=== PATIENT | female | born 1935 | race Caucasian/White ===

== ENCOUNTER → 2016-11-10 08:05 | Outpatient (CLI) | payer MEDICARE, OTHER ==
[2011-09-01 08:10] VITALS: BMI 22.5
== END | disposition home or self-care (01) ==
LOC: D.MRI 08:00
DX: M54.16 Radiculopathy, lumbar region (principal)

== ENCOUNTER → 2018-12-14 10:31 | Outpatient (CLI) | payer MEDICARE ==
[2011-09-01 08:10] VITALS: BMI 22.5
== END | disposition home or self-care (01) ==
LOC: D.CT 12-05 13:00
PROVIDERS: ATTEND Family Medicine
DX: I73.9 Peripheral vascular disease, unspecified (principal)